=== PATIENT | female | born 1995 | race American Indian/Alaskan Native ===

== ENCOUNTER 2017-08-28 23:36 | Emergency (ER) | payer SELFPAY ==
[2017-08-29 00:26] LABS: Absolute Lymphocytes (CBC) 4.7 K/uL (0.7-4.9); Absolute Monocytes 0.5 K/uL (0.1-1.3); Absolute Neutrophil 5.2 K/uL (1.8-8.0); Basophils % 0.8 % (0-1.3); Eosinophils % 1.1 % (0-4.4); Hematocrit 39.7 % (36.0-45.0); Lymphocytes % 44.2 % (15.3-44.8); MCH 29.9 pg (27.0-35.0); MCV 89.6 fL (80-100); MPV 8.4 fL (7.6-11.3); Monocytes % 4.9 % (3.3-12.3); RBC Red Blood Cell Count 4.44 M/uL (3.86-4.86)
[2017-08-29] MEDS ORDERED: ONDANSETRON 4 MG/2 ML VIAL ONE (00:40)
[2017-08-29] MEDS ORDERED: NA CHLORIDE 0.9% 1,000 ML ONE (00:40)
[2017-08-29] MEDS ORDERED: MORPHINE 4 MG/ML SYR ONE ×2 (00:40→02:33)
[2017-08-29 00:42] LABS: Glomerular Filtration Rate > 60 mL/min (>60)
[2017-08-29 00:43] LABS: Bicarbonate 30 mEq/L (21-31); Glucose Level 96 mg/dL (65-120); Lipase 17 U/L (22-51); Potassium 3.6 mEq/L (3.6-5.0); Sodium Level 141 mEq/L (135-145)
[2017-08-29 00:45] LABS: Urine Culture Reflex Order REFLEXED
[2017-08-29 00:50] LABS: ALT/SGPT 17 IU/L (10-60); AST/SGOT 20 IU/L (10-42); Albumin 4.5 g/dL (3.2-5.5); Alkaline Phosphatase 75 IU/L (42-121); Amylase Level 55 U/L (28-100); BUN Blood Urea Nitrogen 18 mg/dL (6-20); Bilirubin Direct 0.1 mg/dL (0-0.2); Bilirubin Total 0.4 mg/dL (0.3-1.2); Glomerular Filtration Rate > 90 mL/min (=/>90); Protein, Total 7.7 g/dL (6.0-8.3)
[2017-08-29 01:06] LABS: Urine Bacteria 20-50 /HPF (<20); Urine RBC <5 /HPF (NONE SEEN)
[2017-08-29 01:10] LABS: Urine Blood NEGATIVE (NEG); Urine Glucose NEGATIVE (NEG); Urine Protein NEGATIVE (NEG); Urine Specific Gravity >1.030 (1.005-1.030); Urine pH 5.5 (5.0-7.0)
--- NOTE | 2017-08-29 03:38 | ER ---
Nurse's Notes [facility] Name: Lynn Reyes Age: 22 yrs Sex: Female : 1995 Arrival Date: 08/28/2017 Time: 23:39 Bed 17 Private MD: Diagnosis: Abdominal tenderness;Functional dyspepsia;Nonspecific mesenteric lymphadenitis Presentation: 08/28 23:46 Presenting complaint: Patient states: she has been having right sided pain for over a bb week worsened today also pain is in lower abdomen has nausea but denies vomiting or diarrhea, denies burning or frequency with urination, pain is constant then shoots up. Transition of care: patient was not received from another setting of care. Onset of symptoms was August 13, 2017. Care prior to arrival: None. 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 - Social history:: Smoking status: Patient/guardian denies using tobacco, Patient/guardian denies using alcohol, street drugs. Screenin/30 00:31 Abuse screen: Denies threats or abuse. Denies injuries from another. Nutritional bp screening: No deficits noted. Tuberculosis screening: No symptoms or risk factors identified. Fall Risk None identified. Assessment: 00:00 General: Appears in no apparent distress. comfortable, obese, Behavior is calm, bp cooperative, appropriate for age. Pain: Complains of pain in right mid back, right low back and posterior aspect of right lateral abdomen. Neuro: Level of Consciousness is awake, alert, obeys commands, Oriented to person, place, time, situation, Appropriate for age. Cardiovascular: No deficits noted. Respiratory: No deficits noted. GI: Bowel sounds present X 4 quads. Abd is soft and non tender X 4 quads. : Reports pain in right flank(s). EENT: No deficits noted. Derm: No deficits noted. Musculoskeletal: Circulation, motion, and sensation intact. Range of motion: intact in all extremities. 00:38 Reassessment: PT COMPLETED PO CONTRAST, CT NOTIFIED. bp 01:10 Reassessment: No changes from previously documented assessment. Patient and/or family bs1 updated on plan of care and expected duration. Pain level reassessed. Patient is alert, oriented x 3, equal unlabored respirations, skin warm/dry/pink. Patient states symptoms have improved. 02:25 Reassessment: Patient appears in no apparent distress at this time. Patient and/or bs1 family updated on plan of care and expected duration. Pain level reassessed. Patient is alert, oriented x 3, equal unlabored respirations, skin warm/dry/pink. Pending results of CT. Vital Signs: 08/28 23:48 BP 123 / 80; Pulse 63; Resp 18 S; Temp 97.8(O); Pulse Ox 100% on R/A; Weight 99.79 kg bb (R); Height 5 ft. 4 in. (162.56 cm) (R); Pain 7/10; 08/29 00:48 BP 109 / 58; Pulse 70; Pulse Ox 99% on R/A; Pain 6/10; bs1 01:14 BP 97 / 60; Pulse 70; Resp 16; Pulse Ox 99% on R/A; Pain 6/10; bs1 01:29 BP 105 / 67; Pulse 78; Resp 16; Pulse Ox 100% on R/A; Pain 0/10; bs1 02:30 BP 117 / 65; Pulse 76; Resp 16; Pulse Ox 100% on R/A; Pain 7/10; bs1 03:30 BP 107 / 61; Pulse 81; Resp 17; Pulse Ox 99% on R/A; Pain 3/10; bs1 08/28 23:48 Body Mass Index 37.76 (99.79 kg, 162.56 cm) ED Course: 08/28 23:39 Patient arrived in ED. es 23:47 Triage completed. bb 23:48 Arm band placed on Patient placed in an exam room, on a stretcher. Family accompanied bb patient. 23:52 Ed Lindsay MD is Attending Physician. [facility] 08/29 00:10 Inserted saline lock: 20 gauge in right antecubital area, using aseptic technique. bp Blood collected. 00:40 Patient has correct armband on for positive identification. Bed in low position. Call bs1 light in reach. Side rails up X 1. 01:10 Amie Hernández, RN is Primary Nurse. bs1 01:12 Pulse ox on. NIBP on. bs1 02:55 CT Abd/Pelvis - W/Contrast In Process Unspecified. EDMS 03:18 No provider procedures requiring assistance completed. bs1 03:46 IV discontinued, bleeding controlled, No redness/swelling at site. Pressure dressing bs1 applied. Administered Medications: 00:20 Drug: NS 0.9% 1000 ml Route: IV; Rate: 1 bolus; Site: right antecubital; bp 03:46 Follow up: IV Status: Completed infusion bs1 00:20 Drug: morphine 2 mg Route: IVP; Site: right antecubital; bp 03:18 Follow up: Response: No adverse reaction bs1 00:20 Drug: Zofran 4 mg Route: IVP; Site: right antecubital; bp 03:18 Follow up: Response: No adverse reaction bs1 02:19 Drug: morphine 2 mg Route: IVP; Site: right antecubital; bs1 03:18 Follow up: Response: No adverse reaction bs1 Outcome: 03:37 Discharge ordered by MD. ferguson 03:45 Discharged to home ambulatory, with significant other. bs1 03:45 Condition: stable 03:45 Discharge instructions given to patient, Instructed on discharge instructions, follow up and referral plans. medication usage, Demonstrated understanding of instructions, follow-up care, medications, Prescriptions given X 3. 03:46 Patient left the ED. bs1 Signatures: Dispatcher [employer] Ed Malone MD MD cha Salyer, Edna es Ballard, Brenda, JUDI RN Kolby Arvizu, JUDI RN Amie Robbins, JUDI RN bs1
--- NOTE | 2017-08-29 03:38 | EDPHYS ---
Physician Documentation [facility] Name: Lynn Reyes Age: 22 yrs Sex: Female : 1995 Arrival Date: 08/28/2017 Time: 23:39 Bed 17 Private MD: ED Physician Ed Lindsay HPI: 08/29 00:01 This 22 yrs old Other Female presents to ER via Ambulatory with complaints of Flank phyllis Pain, Abdominal Pain, Nausea. 00:01 The patient complains of pain in the right mid back and right low back. The pain phyllis radiates to the abdomen. Onset: The symptoms/episode began/occurred 7 day(s) ago. Modifying factors: The symptoms are alleviated by nothing. the symptoms are aggravated by nothing. Associated signs and symptoms: The patient has no apparent associated signs or symptoms. Severity of pain: At its worst the pain was mild in the emergency department the pain is unchanged. The patient has not experienced similar symptoms in the past. 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 - Social history:: Smoking status: Patient/guardian denies using tobacco, Patient/guardian denies using alcohol, street drugs. ROS: 08/29 00:02 Constitutional: Negative for fever, chills, and weight loss, Eyes: Negative for injury, phyllis pain, redness, and discharge, ENT: Negative for injury, pain, and discharge, Neck: Negative for injury, pain, and swelling, Cardiovascular: Negative for chest pain, palpitations, and edema, Respiratory: Negative for shortness of breath, cough, wheezing, and pleuritic chest pain, Back: Negative for injury and pain, : Negative for injury, bleeding, discharge, and swelling, MS/Extremity: Negative for injury and deformity, Skin: Negative for injury, rash, and discoloration, Neuro: Negative for headache, weakness, numbness, tingling, and seizure, Psych: Negative for depression, anxiety, suicide ideation, homicidal ideation, and hallucinations, Allergy/Immunology: Negative for hives, rash, and allergies, Endocrine: Negative for neck swelling, polydipsia, polyuria, polyphagia, and marked weight changes, Hematologic/Lymphatic: Negative for swollen nodes, abnormal bleeding, and unusual bruising. Abdomen/GI: Positive for abdominal pain, of the right upper quadrant and right lower quadrant. Exam: 00:02 Constitutional: This is a well developed, well nourished patient who is awake, alert, phyllis and in no acute distress. Head/Face: Normocephalic, atraumatic. Eyes: Pupils equal round and reactive to light, extra-ocular motions intact. Lids and lashes normal. Conjunctiva and sclera are non-icteric and not injected. Cornea within normal limits. Periorbital areas with no swelling, redness, or edema. ENT: Nares patent. No nasal discharge, no septal abnormalities noted. Tympanic membranes are normal and external auditory canals are clear. Oropharynx with no redness, swelling, or masses, exudates, or evidence of obstruction, uvula midline. Mucous membranes moist. Neck: Trachea midline, no thyromegaly or masses palpated, and no cervical lymphadenopathy. Supple, full range of motion without nuchal rigidity, or vertebral point tenderness. No Meningismus. Chest/axilla: Normal chest wall appearance and motion. Nontender with no deformity. No lesions are appreciated. Cardiovascular: Regular rate and rhythm with a normal S1 and S2. No gallops, murmurs, or rubs. Normal PMI, no JVD. No pulse deficits. Respiratory: Lungs have equal breath sounds bilaterally, clear to auscultation and percussion. No rales, rhonchi or wheezes noted. No increased work of breathing, no retractions or nasal flaring. Female : Normal external genitalia. Skin: Warm, dry with normal turgor. Normal color with no rashes, no lesions, and no evidence of cellulitis. MS/ Extremity: Pulses equal, no cyanosis. Neurovascular intact. Full, normal range of motion. Neuro: Awake and alert, GCS 15, oriented to person, place, time, and situation. Cranial nerves II-XII grossly intact. Motor strength 5/5 in all extremities. Sensory grossly intact. Cerebellar exam normal. Normal gait. Psych: Awake, alert, with orientation to person, place and time. Behavior, mood, and affect are within normal limits. 00:02 Abdomen/GI: Inspection: gravid appearance, ia not appreciated, Bowel sounds: normal, Palpation: mild abdominal tenderness, in the epigastric area, right upper quadrant and right lower quadrant. Vital Signs: 08/28 23:48 BP 123 / 80; Pulse 63; Resp 18 S; Temp 97.8(O); Pulse Ox 100% on R/A; Weight 99.79 kg bb (R); Height 5 ft. 4 in. (162.56 cm) (R); Pain 7/10; 08/29 00:48 BP 109 / 58; Pulse 70; Pulse Ox 99% on R/A; Pain 6/10; bs1 01:14 BP 97 / 60; Pulse 70; Resp 16; Pulse Ox 99% on R/A; Pain 6/10; bs1 01:29 BP 105 / 67; Pulse 78; Resp 16; Pulse Ox 100% on R/A; Pain 0/10; bs1 02:30 BP 117 / 65; Pulse 76; Resp 16; Pulse Ox 100% on R/A; Pain 7/10; bs1 03:30 BP 107 / 61; Pulse 81; Resp 17; Pulse Ox 99% on R/A; Pain 3/10; bs1 08/28 23:48 Body Mass Index 37.76 (99.79 kg, 162.56 cm) bb MDM: 08/28 23:52 Patient medically screened. [facility] 08/29 00:03 Data reviewed: vital signs, nurses notes, lab test result(s), EKG, radiologic studies. [facility] 08/29 00:00 Order name: Amylase, Serum [facility] 08/29 00:00 Order name: Basic Metabolic Panel; Complete Time: 01:05 [facility] 08/29 00:00 Order name: CBC with Diff; Complete Time: 00:34 phyllis 08/29 00:00 Order name: Creatinine for Radiology; Complete Time: 00:49 phyllis 08/29 00:00 Order name: Hepatic Function; Complete Time: 01:05 phyllis 08/29 00:00 Order name: Lipase; Complete Time: 01:05 phyllis 08/29 00:00 Order name: Urine Microscopic Only; Complete Time: 02:55 phyllis 08/29 00:01 Order name: Amylase Level; Complete Time: 01:05 [facility] 08/29 00:01 Order name: CT Abd/Pelvis - W/Contrast [facility] 08/29 00:22 Order name: Urine Dipstick--Ancillary (enter results); Complete Time: 02:55 08/29 00:22 Order name: Urine --Ancillary (enter results); Complete Time: 02:55 08/29 01:11 Order name: Urine Culture [facility] 08/29 00:00 Order name: Urine Test (obtain specimen); Complete Time: 00: [facility] 08/29 00:00 Order name: IV Saline Lock; Complete Time: 00: [facility] 08/29 00:00 Order name: Labs collected and sent; Complete Time: 00: [facility] 08/29 00:00 Order name: Urine Dipstick-Ancillary (obtain specimen); Complete Time: : [facility] Administered Medications: 00:20 Drug: NS 0.9% 1000 ml Route: IV; Rate: 1 bolus; Site: right antecubital; bp 03:46 Follow up: IV Status: Completed infusion bs1 00:20 Drug: morphine 2 mg Route: IVP; Site: right antecubital; bp 03:18 Follow up: Response: No adverse reaction bs1 00:20 Drug: Zofran 4 mg Route: IVP; Site: right antecubital; bp 03:18 Follow up: Response: No adverse reaction bs1 02:19 Drug: morphine 2 mg Route: IVP; Site: right antecubital; bs1 03:18 Follow up: Response: No adverse reaction bs1 Disposition: 08/29/17 03:37 Discharged to Home. Impression: Abdominal tenderness, Functional dyspepsia, Nonspecific mesenteric lymphadenitis. - Condition is Stable. - Discharge Instructions: Abdominal Pain, Adult, Nausea and Vomiting, Abdominal Pain, Adult, [id number], Indigestion, [id number]. - Prescriptions for Bentyl 20 mg Oral Tablet - take 1 tablet by ORAL route every 6 hours As needed; 20 tablet. Pepcid 20 mg Oral Tablet - take 1 tablet by ORAL route every 12 hours for 10 days; 20 tablet. Zofran 4 mg Oral Tablet - take 1 tablet by ORAL route every 12 hours As needed; 20 tablet. - Medication Reconciliation Form, Thank You Letter, Antibiotic Education, Prescription Opioid Use form. - Follow up: Private Physician; When: 2 - 3 days; Reason: Recheck today's complaints, Continuance of care, Re-evaluation by your physician. - Problem is new. - Symptoms have improved. Signatures: Dispatcher [employer] Ed Malone, Licha Cain MD, cha, RN RN Kolby Arvizu, RN RN bp Amie Hernández RN RN bs1
--- NOTE | 2017-08-29 09:00 | RAD REPORT ---
EXAM DESCRIPTION: CT - Abdomen Pelvis W Contrast - 08/29/2017 5:11 am CLINICAL HISTORY: Worsening right side abdominal pain A preliminary written report was provided at the time of the study, and the report was reviewed prio r to final dictation. COMPARISON: CT study January 2016 TECHNIQUE: Biphasic, helical CT imaging of the abdomen and pelvis was performed following 100 ml non -ionic IV contrast. Oral contrast was given. All CT scans are performed using dose optimization technique as appropriate and may include automated exposure control or mA/KV adjustment according to patient size. FINDINGS: No suspicious findings in the lung bases. The liver, spleen, and pancreas show no suspicious findings. Gallbladder and biliary tree are also wi thout suspicious finding. Symmetric renal function is seen with no hydronephrosis or suspicious renal mass. No urinary bladder abnormality. Uterus and ovaries show no suspicious findings. No dilated bowel loops or bowel wall thickening. No appendicitis findings. Patient does have a few sm all mesenteric lymph nodes in the central abdomen and right lower quadrant. No free air, free fluid o r inflammatory stranding. No hernia, mass or bulky lymphadenopathy. No adrenal abnormality. No suspicious bony findings. IMPRESSION: Multiple mesenteric lymph nodes are seen in the central abdomen and right lower quadrant . Pattern is not substantially different from the comparison. Finding could reflect a recurrent mese nteric adenitis. No appendicitis or emergent abdominal or pelvic finding.
== END 2017-08-29 03:46 | disposition home or self-care (01) ==
LOC: ER 23:36
DX: K30 Functional dyspepsia (principal); I88.0 Nonspecific mesenteric lymphadenitis
CPT/HCPCS: 36415; 74177; 80048; 80076; 81003; 81015; 81025; 82150; 83690; 85025; 87086; 87088; 96361; 96374; 96375; 99284; J2405; J7030; Q9967

== ENCOUNTER 2018-12-15 06:50 | Day surgery (SDC) | payer SELFPAY ==
[2018-12-15 07:27] LABS: Specific Gravity 1.025 (1.005-1.030)
[2018-12-15] MEDS ORDERED: Ringers Lactate 1,000 ML IV ONE (07:46)
[2018-12-15] MEDS ORDERED: PROPOFOL 200 MG/20 ML VIAL IV ONE (08:22)
[2018-12-15] MEDS ORDERED: LIDOCAINE 2% MPF 5 ML VIAL ONE (08:23)
[2018-12-15] MEDS ORDERED: FENTANYL CITR 100 MCG/2 ML ONE (08:23)
[2018-12-15] MEDS ORDERED: ONDANSETRON 4 MG/2 ML VIAL ONE (08:23)
[2018-12-15] MEDS ORDERED: MIDAZOLAM HCL 2 MG/2 ML INJ ONE (08:23)
[2018-12-15] MEDS ORDERED: KETOROLAC 30 MG/ML INJ ONE (09:04)
--- NOTE | 2018-12-15 18:35 | OP ---
Date of Procedure: 12/15/2018 Surgeon: Genia Varghese MD Preoperative Diagnosis: Menorrhagia and possible endometrial polyp. The patient with significant fa andrez history of colon cancer and personal history of colon polyps. Postoperative Diagnosis: Menorrhagia and endometrial polyp. The patient with significant family his tory of colon cancer and personal history of colon polyps. Procedures Performed: Hysteroscopy, polypectomy, and dilation and curettage. Anesthesia: General with LMA. Specimens: Endometrial polyp and curettings. Complications: No complications. Drains: None. Condition: Stable. Findings: Posterior wall of the endometrial cavity in the lower part had a polyp that was protruding through the cervical canal. This was entirely removed. There was a thickened area of the endometri um at the fundus towards the left cornua, which were almost similar to synechiae; however, no adhesio ns seen because this was endometrium after the tissue was removed with the help of a Jeremías forceps and cavity was visualized. There were no intracavitary adhesions. Indications: The patient is a 23-year-old with heavy bleeding. She was evaluated with a transvagina l ultrasound. Her lining appeared to be very thick. She has a mother and a maternal uncle with colo n cancer that was diagnosed in their 20s. Suspected to have endometritis, salpingitis, and she was t reated with antibiotics. After this was completely treated and she had no more pain or tenderness, t hen she was brought to the OR for removal of the polyp and evaluation of the cavity to see if there w ere any endometrial polyps given the family history of colon cancer. Description Of Procedure: She was consented and taken back to the OR, placed in supine fashion on e operating table. After general was given, she was placed in a dorsal lithotomy position using Nii n stirrups. Pelvic exam performed. Uterus mid-position, slightly retroflexed. No adnexal masses. Speculum placed to expose the cervix. Prep x3 with Betadine was done. Anterior lip grasped with 2 A llis clamps. Using a diagnostic SlimLine hysteroscope, normal saline, 30 degree lens, direct hystero scopy was performed through the cervical canal into the uterine cavity. The polyp was seen at the ve ry base of the endometrial cavity and prolapsing out through the cervical canal. There were endometr ial possible synechiae, tissue thickening at the left cornual end at the fundus. The scope was used to tease the base out off the polyp as well as the endometrial thickened area. After the scope was r emoved, Jeremías forceps were taken and the polypoid tissue was removed completely and then the endome trial tissue from the fundal cornual end. Then, hysteroscope was placed. No synechiae seen here. T he #2 endometrial curette was used to curette. Both tubal ostia were normal. Cavity undistorted. N o other intracavitary lesions. All the specimens were handed for permanent pathology. She was recov ered from anesthesia in the OR. EBL was minimal. After the instruments were removed; instrument, ne edle, and sponge counts were done and were correct at the end of the case. The patient tolerated the procedure well. She will follow up with me in 1 week. ANNE-MARIE/JOSE Voice ID: [id number] Report ID: [id number]
== END 2018-12-15 10:50 | disposition home or self-care (01) ==
LOC: OR 06:50
PROVIDERS: ATTEND Obstetrics & Gynecology
PROC: 0UDB8ZX Extraction of Endometrium, Via Natural or Artificial Opening Endoscopic, Diagnostic (ICD-10-PCS; 2018-12-15)
PROC: 0UB98ZX Excision of Uterus, Via Natural or Artificial Opening Endoscopic, Diagnostic (ICD-10-PCS; principal; 2018-12-15 09:00)
DX: N84.0 Polyp of corpus uteri (principal); N92.1 Excessive and frequent menstruation with irregular cycle; Z80.0 Family history of malignant neoplasm of digestive organs; Z86.010 Personal history of colon polyps
CPT/HCPCS: 81025; 88305; J2250; J2405; J2704; J3010

== ENCOUNTER 2020-04-22 12:09 | Emergency (ER) | payer SELFPAY ==
--- NOTE | 2020-04-22 13:26 | ER ---
Nurse's Notes [facility] Name: Lynn Reyes Age: 25 yrs Sex: Female : 1995 Arrival Date: 04/22/2020 Time: 12:12 Bed 23 Private MD: Diagnosis: Person with feared health complaint in whom no diagnosis is made Presentation: 04/22 12:20 Chief complaint: Patient states: Requests a covid test, her is positive. No ll1 symptoms. Coronavirus screen: Client denies travel out of the [place] in the last 14 days. At this time, the client does not indicate any symptoms associated with coronavirus-19. around a positive person. Ebola Screen: Patient denies travel to an Ebola-affected area in the 21 days before illness onset. Initial Sepsis Screen: Does the patient meet any 2 criteria? No. Patient's initial sepsis screen is negative. Does the patient have a suspected source of infection? No. Patient's initial sepsis screen is negative. Risk Assessment: Do you want to hurt yourself or someone else? Patient reports no desire to harm self or others. Onset of symptoms was April 22, 2020. 12:20 Method Of Arrival: Ambulatory ll1 12:20 Acuity: AQUILES 5 ll1 Historical: - Allergies: 12:21 No Known Allergies; ll1 - PSHx: 12:21 colonoscopy; Left wrist surgery; D \T\ C; ll1 - Immunization history:: Flu vaccine is not up to date. - Social history:: Smoking status: Patient denies any tobacco usage or history of. Screenin:12 Abuse screen: Denies threats or abuse. Nutritional screening: No deficits noted. ll1 Tuberculosis screening: No symptoms or risk factors identified. Fall Risk None identified. Total Bowman Fall Scale indicates No Risk (0-24 pts). Assessment: 13:11 General: Appears in no apparent distress. Behavior is calm, cooperative, appropriate ll1 for age. General: would like a covid test since her tested positive this week. Denies having any symptoms. . Pain: Denies pain. Neuro: No deficits noted. Cardiovascular: No deficits noted. Respiratory: No deficits noted. GI: No deficits noted. Vital Signs: 12:20 BP 129 / 78; Pulse 67; Resp 17; Temp 98.4; Pulse Ox 100% ; Weight 104.33 kg; Height 5 ll1 ft. 4 in. (162.56 cm); Pain 0/10; 12:20 Body Mass Index 39.48 (104.33 kg, 162.56 cm) ll1 ED Course: 12:12 Patient arrived in ED. mr 12:21 Triage completed. ll1 12:22 Arm band placed on. ll1 13:10 Lakhwinder Carlson NP is PHCP. pm1 13:10 Caleb Styles MD is Attending Physician. pm1 13:11 César Aleman, JUDI is Primary Nurse. ll1 13:12 Patient has correct armband on for positive identification. Bed in low position. Call ll1 light in reach. Side rails up X 1. 13:12 No provider procedures requiring assistance completed. Patient did not have IV access ll1 during this emergency room visit. 13:33 Primary Nurse role handed off by César Aleman RN sv Administered Medications: No medications were administered Outcome: 13:26 Discharge ordered by . pm1 13:33 Medical screen evaluation completed per provider. Patient declined treatment. sv 13:33 Condition: stable 13:33 Patient left the ED. sv 13:33 Patient left the ED. sv Signatures: Gretchen Patterson RN RN sv DarielVicky mr Lakhwinder Carlson, EDGAR HYDRAULICS ENGINEER pm1 César Aleman RN RN [facility]
--- NOTE | 2020-04-22 13:26 | EDPHYS ---
Physician Documentation [facility] Name: Lynn Reyes Age: 25 yrs Sex: Female : 1995 Arrival Date: 04/22/2020 Time: 12:12 Bed 23 Private MD: ED Physician Caleb Styles HPI: 04/22 13:32 This 25 yrs old Other Female presents to ER via Ambulatory with complaints of Covid pm1 Test. 13:32 Associated signs and symptoms: The patient has no apparent associated signs or pm1 symptoms. The patient has not experienced similar symptoms in the past. The patient has not recently seen a physician. Patient is presenting to the ER with a request for COVID testing because her finance tested positive recently. She does not have any complaints or symptoms. Historical: - Allergies: 12: No Known Allergies; ll1 - PSHx: 12:21 colonoscopy; Left wrist surgery; D \T\ C; ll1 - Immunization history:: Flu vaccine is not up to date. - Social history:: Smoking status: Patient denies any tobacco usage or history of. ROS: 13:32 Constitutional: Negative for fever, chills, and weight loss, Eyes: Negative for injury, pm1 pain, redness, and discharge, ENT: Negative for injury, pain, and discharge, Cardiovascular: Negative for chest pain, palpitations, and edema, Respiratory: Negative for shortness of breath, cough, wheezing, and pleuritic chest pain, Abdomen/GI: Negative for abdominal pain, nausea, vomiting, diarrhea, and constipation, MS/Extremity: Negative for injury and deformity, Skin: Negative for injury, rash, and discoloration, Neuro: Negative for headache, weakness, numbness, tingling, and seizure. Exam: 13:32 Constitutional: This is a well developed, well nourished patient who is awake, alert, pm1 and in no acute distress. Head/Face: Normocephalic, atraumatic. 13:32 Skin: Warm, dry with normal turgor. Normal color with no rashes, no lesions, and no evidence of cellulitis. MS/ Extremity: Pulses equal, no cyanosis. Neurovascular intact. Full, normal range of motion. 13:32 Cardiovascular: Exam negative for acute changes, Rate: normal, Rhythm: regular, Pulses: no pulse deficits are appreciated. 13:32 Respiratory: Exam negative for acute changes, respiratory distress, shortness of breath. 13:32 Neuro: Exam negative for acute changes, Orientation: is normal, Mentation: is normal, Motor: is normal, moves all fours, Gait: is steady, at a normal pace, without difficulty. Vital Signs: 12:20 BP 129 / 78; Pulse 67; Resp 17; Temp 98.4; Pulse Ox 100% ; Weight 104.33 kg; Height 5 ll1 ft. 4 in. (162.56 cm); Pain 0/10; 12:20 Body Mass Index 39.48 (104.33 kg, 162.56 cm) ll1 MDM: 13:10 Patient medically screened. pm1 13:25 Medical screen evaluation completed. EMTALA emergency medical condition absent. pm1 13:32 ED course: Patient without any symptoms or complaints and presented to the ER strictly pm1 for COVID testing since her fiancee tested positive. Informed her that there is no emergency medical condition present and so no treatment or testing is warranted in the ER. Patient understood that and wants to go to a free clinic to get COVID testing since there are free and low cost clinics in the area that provide COVID testing. I medically screened the patient and the patient decided that she wanted to go one of the COVID testing locations provided to her. 13:32 Data reviewed: vital signs. pm1 Administered Medications: No medications were administered Disposition: 04/23 06:56 Co-signature as Attending Physician, Caleb Styles MD I agree with the assessment and kdr plan of care. Disposition: 04/22/20 13:26 Discharged to Home as Medical Screen. Impression: Person with feared health complaint in whom no diagnosis is made. - Condition is Stable. - Medication Reconciliation Form, Thank You Letter, Antibiotic Education, Prescription Opioid Use form. - Follow up: Emergency Department; When: As needed; Reason: Worsening of condition. Follow up: Private Physician; When: 2 - 3 days; Reason: Recheck today's complaints, Continuance of care, Re-evaluation by your physician. - Problem is new. - Symptoms are unchanged. Signatures: Gretchen Patterson RN RN Caleb Styles MD MD kdr Marinas, Patrick, EDGAR CHARACTER IMPERSONATOR pm1 César Aleman RN RN ll1 Corrections: (The following items were deleted from the chart) 04/22 13:33 13:26 04/22/2020 13:26 Discharged to Home. Impression: Person with feared health sv complaint in whom no diagnosis is made. Condition is Stable. Forms are Medication Reconciliation Form, Thank You Letter, Antibiotic Education, Prescription Opioid Use. Follow up: Emergency Department; When: As needed; Reason: Worsening of condition. Follow up: Private Physician; When: 2 - 3 days; Reason: Recheck today's complaints, Continuance of care, Re-evaluation by your physician. Problem is new. Symptoms are unchanged. pm1 13:33 13:33 04/22/2020 13:26 Discharged to Home. Impression: Person with feared health sv complaint in whom no diagnosis is made. Condition is Stable. Forms are Medication Reconciliation Form, Thank You Letter, Antibiotic Education, Prescription Opioid Use. Follow up: Emergency Department; When: As needed; Reason: Worsening of condition. Follow up: Private Physician; When: 2 - 3 days; Reason: Recheck today's complaints, Continuance of care, Re-evaluation by your physician. Problem is new. Symptoms are unchanged. sv 13:33 13:33 04/22/2020 13:26 Discharged to Home as Medical Screen. Impression: Person with sv feared health complaint in whom no diagnosis is made. Condition is Stable. Forms are Medication Reconciliation Form, Thank You Letter, Antibiotic Education, Prescription Opioid Use. Follow up: Emergency Department; When: As needed; Reason: Worsening of condition. Follow up: Private Physician; When: 2 - 3 days; Reason: Recheck today's complaints, Continuance of care, Re-evaluation by your physician. Problem is new. Symptoms are unchanged. sv
[2020-04-22 19:28] VITALS: BP 129/78; TEMP 98.4; O2SAT 100
== END 2020-04-22 13:33 | disposition home or self-care (01) ==
LOC: ER 12:09
DX: Z71.1 Person with feared health complaint in whom no diagnosis is made (principal)
CPT/HCPCS: 99281

== ENCOUNTER 2020-06-11 00:46 | Emergency (ER) | payer OTHER, SELFPAY ==
[2020-06-11] MEDS ORDERED: ONDANSETRON 4 MG/2 ML VIAL ONE (01:37)
[2020-06-11] MEDS ORDERED: NA CHLORIDE 0.9% 1,000 ML ONE (01:37)
[2020-06-11] MEDS ORDERED: MORPHINE 4 MG/ML SYR ONE (01:37)
[2020-06-11 01:56] LABS: Absolute Lymphocytes (CBC) 4.2 K/uL (0.7-4.9); Basophils % 0.6 % (0-1.3); Hematocrit 38.7 % (36.0-45.0); Lymphocytes % 39.2 % (15.3-44.8); MPV 8.3 fL (7.6-11.3); RBC Red Blood Cell Count 4.27 M/uL (3.86-4.86)
[2020-06-11 02:09] LABS: ALT/SGPT 17 U/L (12-78); AST/SGOT 12 U/L (15-37); Albumin 3.9 g/dL (3.4-5.0); Alkaline Phosphatase 87 U/L (45-117); BUN Blood Urea Nitrogen 15 mg/dL (7-18); Bicarbonate 31 mmol/L (21-32); Bilirubin Direct < 0.1 mg/dL (0-0.2); Bilirubin Total 0.2 mg/dL (0.2-1.0); Glucose Level 109 mg/dL (74-106); Lipase 76 U/L (73-393); Potassium 3.7 mmol/L (3.5-5.1); Protein, Total 7.6 g/dL (6.4-8.2); Sodium Level 142 mmol/L (136-145)
[2020-06-11 02:36] LABS: Urine Blood NEGATIVE (NEG); Urine Glucose NEGATIVE (NEG); Urine Protein NEGATIVE (NEG); Urine Specific Gravity >1.030 (1.005-1.030)
--- NOTE | 2020-06-11 04:53 | EDPHYS ---
Physician Documentation [facility] Name: Lynn Reyes Age: 25 yrs Sex: Female : 1995 Arrival Date: 06/11/2020 Time: 00:51 Bed 4 Private MD: ED Physician Andrew Rodriges HPI: 06/11 01:57 This 25 yrs old Other Female presents to ER via Ambulatory with complaints of Abdominal mh7 Pain, blood in umbilical. 01:57 The patient presents with abdominal pain in the periumbilical area. Onset: The mh7 symptoms/episode began/occurred 2 day(s) ago. The symptoms do not radiate. Associated signs and symptoms: Pertinent positives: blood tinged discharge from umbilical area, Pertinent negatives: nausea, vomiting, and diarrhea, anorexia, blood in stools, chest pain, constipation, diarrhea, dysuria, fever, headache, hematuria, nausea, palpitations, shortness of breath, vaginal discharge, vomiting, vomiting blood. The symptoms are described as intermittent, vague, waxing/waning. Modifying factors: The symptoms are alleviated by nothing, the symptoms are aggravated by nothing. Severity of pain: At its worst the pain was moderate yesterday, in the emergency department the pain is unchanged. Historical: - Allergies: 01:12 No Known Allergies; ea - Home Meds: 01:12 None [Active]; ea - PSHx: 01:12 D \T\ C; Left wrist surgery; colonoscopy; ea - Immunization history:: Adult Immunizations up to date. - Social history:: Smoking status: Patient denies any tobacco usage or history of. ROS: 01:57 Constitutional: Negative for fever, chills, and weight loss, Eyes: Negative for injury, mh7 pain, redness, and discharge, ENT: Negative for injury, pain, and discharge, Neck: Negative for injury, pain, and swelling, Cardiovascular: Negative for chest pain, palpitations, and edema, Respiratory: Negative for shortness of breath, cough, wheezing, and pleuritic chest pain, Back: Negative for injury and pain, : Negative for injury, bleeding, discharge, and swelling, MS/Extremity: Negative for injury and deformity, Skin: Negative for injury, rash, and discoloration, Neuro: Negative for headache, weakness, numbness, tingling, and seizure, Psych: Negative for depression, anxiety, suicide ideation, homicidal ideation, and hallucinations, Allergy/Immunology: Negative for hives, rash, and allergies, Endocrine: Negative for neck swelling, polydipsia, polyuria, polyphagia, and marked weight changes, Hematologic/Lymphatic: Negative for swollen nodes, abnormal bleeding, and unusual bruising. Exam: 01:57 Constitutional: This is a well developed, well nourished patient who is awake, alert, mh7 and in no acute distress. Head/Face: Normocephalic, atraumatic. Eyes: Pupils equal round and reactive to light, extra-ocular motions intact. Lids and lashes normal. Conjunctiva and sclera are non-icteric and not injected. Cornea within normal limits. Periorbital areas with no swelling, redness, or edema. Neck: Trachea midline, no thyromegaly or masses palpated, and no cervical lymphadenopathy. Supple, full range of motion without nuchal rigidity, or vertebral point tenderness. No Meningismus. Chest/axilla: Normal chest wall appearance and motion. Nontender with no deformity. No lesions are appreciated. Cardiovascular: Regular rate and rhythm with a normal S1 and S2. No gallops, murmurs, or rubs. Normal PMI, no JVD. No pulse deficits. Respiratory: Lungs have equal breath sounds bilaterally, clear to auscultation and percussion. No rales, rhonchi or wheezes noted. No increased work of breathing, no retractions or nasal flaring. 01:57 Back: No spinal tenderness. No costovertebral tenderness. Full range of motion. Skin: Warm, dry with normal turgor. Normal color with no rashes, no lesions, and no evidence of cellulitis. MS/ Extremity: Pulses equal, no cyanosis. Neurovascular intact. Full, normal range of motion. Neuro: Awake and alert, GCS 15, oriented to person, place, time, and situation. Cranial nerves II-XII grossly intact. Motor strength 5/5 in all extremities. Sensory grossly intact. Cerebellar exam normal. Normal gait. Psych: Awake, alert, with orientation to person, place and time. Behavior, mood, and affect are within normal limits. 01:57 Abdomen/GI: Inspection: obese Bowel sounds: normal, in all quadrants, Palpation: moderate abdominal tenderness, in the umbilical area, right upper quadrant and left upper quadrant, Rectal exam: the exam is deferred, because of patient request, Indicators: McBurney's point is not tender, Heller's sign is negative, Rovsing's sign is negative, Obturator sign is negative, Psoas sign is negative, Liver: no appreciated palpable abnormalities, Hernia: not appreciated, mild serosanguinous discharge from umbilicus. Vital Signs: 01:04 BP 122 / 79; Pulse 76; Resp 18; Temp 98.3; Pulse Ox 99% on R/A; Weight 104.33 kg (R); tt3 Height 5 ft. 4 in. (162.56 cm) (R); Pain 6/10; 02:23 BP 120 / 70; Pulse 78; Resp 17; Pulse Ox 100% ; ea 04:49 BP 117 / 64; Pulse 70; Resp 18; Pulse Ox 99% on R/A; ea 01:04 Body Mass Index 39.48 (104.33 kg, 162.56 cm) tt3 MDM: 04:03 Differential diagnosis: appendicitis, bowel obstruction, cholecystitis, Cholelithiasis, mh7 diverticulitis, gastritis, gastroesophageal reflux disease, non-specific abd pain, pancreatitis, Pyelonephritis, Ureterolithiasis, urinary tract infection, Abscess. Data reviewed: vital signs, nurses notes, lab test result(s), CBC, electrolytes, urinalysis, UPT: radiologic studies, CT scan. Data interpreted: Pulse oximetry: on room air is 100 %. Interpretation: normal. Counseling: I had a detailed discussion with the patient and/or guardian regarding: the historical points, exam findings, and any diagnostic results supporting the discharge/admit diagnosis, lab results, radiology results, the need for outpatient follow up, to return to the emergency department if symptoms worsen or persist or if there are any questions or concerns that arise at home. Response to treatment: the patient's symptoms have markedly improved after treatment. 04:44 ED course: Express moderate amount of serous purulent fluid from umbilicus with mh7 application of direct pressure to area. No recurrence of drainage. Wound culture sent. Patient requests to be discharged from the ED.. 04:52 Patient medically screened. 7 05:58 Refusal of service: The patient/guardian displays adequate decision making capability [facility] and despite a detailed discussion of alternatives, benefits, risks, and consequences refuses: Admission to the hospital for further work-up and treatment. 06/11 01:15 Order name: Basic Metabolic Panel; Complete Time: 02:09 [facility] 06/11 01:15 Order name: CBC with Diff; Complete Time: 02:09 [facility] 06/11 01:15 Order name: Hepatic Function; Complete Time: 02:09 7 06/11 01:15 Order name: Lipase; Complete Time: 02:09 7 06/11 02:29 Order name: Urine Dipstick--Ancillary (enter results); Complete Time: 03:33 sp 06/11 02:29 Order name: Test Urine - POC; Complete Time: 03:33 sp 06/11 01:15 Order name: IV Saline Lock; Complete Time: 01:44 [facility] 06/11 02:10 Order name: CT Abd/Pelvis - IV Contrast Only [facility] 06/11 04:39 Order name: Wound Culture rv 06/11 01:15 Order name: Labs collected and sent; Complete Time: 01:44 [facility] 06/11 01:15 Order name: Urine Dipstick-Ancillary (obtain specimen); Complete Time: 02:27 [facility] 06/11 01:15 Order name: Urine Test (obtain specimen); Complete Time: 02:27 7 Administered Medications: 01:44 Drug: NS 0.9% 1000 ml Route: IV; Rate: 1000 ml; Site: left antecubital; ea 04:49 Follow up: Response: No adverse reaction; IV Status: Completed infusion; IV Intake: ea 1000ml 01:44 Drug: Zofran (Ondansetron) 4 mg Route: IVP; Site: left antecubital; ea 02:27 Follow up: Response: No adverse reaction ea 01:45 Drug: morphine 4 mg {Note: rass 0.} Route: IVP; Site: left antecubital; ea 02:27 Follow up: Response: No adverse reaction; Pain is decreased ea 04:47 Drug: Bactrim (160 mg-800 mg (DS) 1 tablet Route: PO; ea 05:09 Follow up: Response: No adverse reaction ea 04:47 Drug: Doxycycline 100 mg Route: PO; ea 05:10 Follow up: Response: No adverse reaction ea Disposition: 06/11/20 04:52 Discharged to Home. Impression: Abscess-Periumbilical Soft Tissue. - Condition is Stable. - Discharge Instructions: Skin Abscess, [id number]. - Prescriptions for Doxycycline Hyclate 100 mg Oral Tablet - take 1 tablet by ORAL route every 12 hours; 20 tablet. Bactrim DS 800- 160 mg Oral Tablet - take 1 tablet by ORAL route every 12 hours for 10 days; 20 tablet. - Work release form, Medication Reconciliation Form, Thank You Letter, Antibiotic Education, Prescription Opioid Use form. - Follow up: Meño Bird MD; When: 1 - 2 days; Reason: Worsening of condition, Recheck today's complaints. - Problem is new. - Symptoms have improved. Signatures: Dispatcher [employer] EDMonie Lau RN RN ea Holmes, Maurice, MD MD mh7 Corrections: (The following items were deleted from the chart) 05:09 04:52 06/11/2020 04:52 Discharged to Home. Impression: Abscess-Periumbilical Soft ea Tissue. Condition is Stable. Forms are Work release form, Medication Reconciliation Form, Thank You Letter, Antibiotic Education, Prescription Opioid Use. Follow up: Meño Bird; When: 1 - 2 days; Reason: Worsening of condition, Recheck today's complaints. Problem is new. Symptoms have improved. mh7
--- NOTE | 2020-06-11 04:53 | ER ---
Nurse's Notes [facility] Name: Lynn Reyes Age: 25 yrs Sex: Female : 1995 Arrival Date: 06/11/2020 Time: 00:51 Bed 4 Private MD: Diagnosis: Abscess-Periumbilical Soft Tissue Presentation: 06/11 01:09 Chief complaint: Patient states: Pt complaining of pain in umbilical area, pt reported ea today she noticed puss and blood coming out of her belly button. Coronavirus screen: At this time, the client does not indicate any symptoms associated with coronavirus-19. Ebola Screen: No symptoms or risks identified at this time. Initial Sepsis Screen: Does the patient meet any 2 criteria? No. Patient's initial sepsis screen is negative. Does the patient have a suspected source of infection? No. Patient's initial sepsis screen is negative. Risk Assessment: Do you want to hurt yourself or someone else? Patient reports no desire to harm self or others. Onset of symptoms was June 11, 2020. 01:09 Method Of Arrival: Ambulatory ea 01:09 Acuity: AQUILES 3 ea Triage Assessment: 01:13 General: Appears in no apparent distress. Behavior is appropriate for age. Pain: ea Complains of pain in umbilical area. Neuro: Level of Consciousness is awake, alert, obeys commands, Oriented to person, place, time. Cardiovascular: Patient's skin is warm and dry. Respiratory: Airway is patent Respiratory effort is even, unlabored, Respiratory pattern is regular, symmetrical. GI: Abdomen is non-distended. Derm: Skin is pink, warm \T\ dry. Historical: - Allergies: 01:12 No Known Allergies; ea - Home Meds: 01:12 None [Active]; ea - PSHx: 01:12 D \T\ C; Left wrist surgery; colonoscopy; ea - Immunization history:: Adult Immunizations up to date. - Social history:: Smoking status: Patient denies any tobacco usage or history of. Screenin:08 Abuse screen: Denies threats or abuse. Nutritional screening: No deficits noted. ea Tuberculosis screening: No symptoms or risk factors identified. Fall Risk None identified. Assessment: 01:14 Reassessment: see triage assessment. ea 02:23 Reassessment: Patient and/or family updated on plan of care and expected duration. Pain ea level reassessed. Patient is alert, oriented x 3, equal unlabored respirations, skin warm/dry/pink. Patient states feeling better. 03:35 Reassessment: Patient and/or family updated on plan of care and expected duration. Pain ea level reassessed. Patient is alert, oriented x 3, equal unlabored respirations, skin warm/dry/pink. Vital Signs: 01:04 BP 122 / 79; Pulse 76; Resp 18; Temp 98.3; Pulse Ox 99% on R/A; Weight 104.33 kg (R); tt3 Height 5 ft. 4 in. (162.56 cm) (R); Pain 6/10; 02:23 BP 120 / 70; Pulse 78; Resp 17; Pulse Ox 100% ; ea 04:49 BP 117 / 64; Pulse 70; Resp 18; Pulse Ox 99% on R/A; ea 01:04 Body Mass Index 39.48 (104.33 kg, 162.56 cm) tt3 ED Course: 00:51 Patient arrived in ED. am2 01:00 Monie Rodriguez, JUDI is Primary Nurse. ea 01:00 Andrew Rodriges MD is Attending Physician. mh7 01:11 Triage completed. ea 01:12 Arm band placed on right wrist. Patient placed in an exam room, on a stretcher, on ea pulse oximetry. 01:12 Patient has correct armband on for positive identification. Bed in low position. Call ea light in reach. Side rails up X 1. special officer on. Pulse ox on. NIBP on. 01:46 Inserted saline lock: 20 gauge in left antecubital area, using aseptic technique. Blood ea collected. 03:23 CT Abd/Pelvis - IV Contrast Only In Process Unspecified. EDMS 04:47 Meño Bird MD is Referral Physician. mh7 04:49 No provider procedures requiring assistance completed. ea 05:00 IV discontinued, intact, bleeding controlled, No redness/swelling at site. Pressure ea dressing applied. Administered Medications: 01:44 Drug: NS 0.9% 1000 ml Route: IV; Rate: 1000 ml; Site: left antecubital; ea 04:49 Follow up: Response: No adverse reaction; IV Status: Completed infusion; IV Intake: ea 1000ml 01:44 Drug: Zofran (Ondansetron) 4 mg Route: IVP; Site: left antecubital; ea 02:27 Follow up: Response: No adverse reaction ea 01:45 Drug: morphine 4 mg {Note: rass 0.} Route: IVP; Site: left antecubital; ea 02:27 Follow up: Response: No adverse reaction; Pain is decreased ea 04:47 Drug: Bactrim (160 mg-800 mg (DS) 1 tablet Route: PO; ea 05:09 Follow up: Response: No adverse reaction ea 04:47 Drug: Doxycycline 100 mg Route: PO; ea 05:10 Follow up: Response: No adverse reaction ea Intake: 04:49 IV: 1000ml; Total: 1000ml. ea Outcome: 04:52 Discharge ordered by MD. mon 05:08 Discharged to home ambulatory, with family. ea 05:08 Condition: stable 05:08 Discharge instructions given to patient, Instructed on discharge instructions, follow up and referral plans. medication usage, Demonstrated understanding of instructions, follow-up care, medications, Prescriptions given X 2. 05:09 Patient left the ED. ea Signatures: Dispatcher [employer] EDMS Kim Case am2 Monie Rodriguez RN RN Andrew Mc MD MD Sridhar Rutledge3 Corrections: (The following items were deleted from the chart) 01:45 01:45 morphine 4 mg IVP in left antecubital ea ea 01:45 01:45 morphine 4 mg IVP in left antecubital ea ea
[2020-06-11] MEDS ORDERED: SMZ./TMP. 800/160 MG TABLET ONE (05:01)
[2020-06-11] MEDS ORDERED: DOXYCYCLINE 100 MG CAP PO ONE (05:01)
[2020-06-11 05:14] VITALS: TEMP 98.3
[2020-06-11 05:16] VITALS: BP 117/64; O2SAT 99
--- NOTE | 2020-06-11 19:54 | RAD REPORT ---
EXAM DESCRIPTION: ADDENDUM #1 Addendum begins: Upon second review there is fat stranding in the periumbilical subcutaneous soft tissues with a small rim-enhancing fluid collection measuring 1.0 cm likely representing a small subcutaneous abscess. Electronically signed by: Iftikhar Farley 06/11/2020 4:18 AM WEB ADMINISTRATOR End of Addendum ABDOMEN AND PELVIS WITH CONTRAST CLINICAL HISTORY: ABD PAIN COMPARISON: 08/29/2017 TECHNIQUE: CT of the abdomen and pelvis performed following IV administration of iodinated contras t. FINDINGS: Lung Bases: The visualized lung bases are clear. Bones: No destructive bone lesions identified. Abdomen: Liver: The liver has normal size and density. No intrahepatic biliary dilatation. Gallbladder: No calcified gallstones. Spleen, Pancreas, and Adrenal Glands: The spleen, pancreas, and adrenal glands are unremarkable. Kidneys: No hydronephrosis or obstructing calculus. Vasculature: The aorta and IVC have normal caliber and position. The portal vein is patent. The pro ximal visceral and renal arteries are patent. Stomach: The stomach and duodenum have normal course. Other: No free intraperitoneal air. No free fluid or lymphadenopathy. Pelvis: Bladder: Urinary bladder is unremarkable. Bowel: No dilated loops of large or small bowel. Appendix: Normal appendix. Pelvis: Uterus is not enlarged. IMPRESSION: 1. No acute inflammatory or obstructive process identified. This exam was performed according to our departmental dose-optimization program, which includes autom ated exposure control, adjustment of the mA and/or kV according to patient size and/or use of iterati ve reconstruction technique. Electronically signed by: Iftikhar Farley 06/11/2020 3:40 AM WEB ADMINISTRATOR Due to temporary technical issues with the PACS/Fluency reporting system, reports are being signed by the in house radiologists without review as a courtesy to insure prompt reporting. The interpreting radiologist is fully responsible for the content of the report.
== END 2020-06-11 05:09 | disposition home or self-care (01) ==
LOC: ER 00:46
DX: L02.211 Cutaneous abscess of abdominal wall (principal)
CPT/HCPCS: 87070; 85025; 80048; 36415; 87205; 81025; 80076; 81003; 83690; 74177; Q9967; J7030; J2405; 96361; 96374; 96375; 99284